=== PATIENT | male | born 1945 | race Caucasian/White ===

== ENCOUNTER 2017-02-23 13:26 | Emergency (ER) | payer OTHER, MEDICARE ==
[~2017-02-23] VITALS: Ht 180.3 cm; Wt 97.5 kg
[2017-02-23] MEDS ORDERED: LIDOCAINE 1% / SOD BICARB 8.4% 20 ML VIAL. IJ ONE (14:00)
--- NOTE | 2017-02-23 14:23 | PHYS DOC ---
Past Medical History Past Medical History: Hypertension Past Surgical History: Coronary Bypass Surgery, Other Additional Past Surgical Histo: kidney stone removal Alcohol Use: Rarely Drug Use: None Adult General Chief Complaint Chief Complaint: LACERATION/AVULSION HPI HPI Patient is a 71 year old male who presents with left index finger laceration from band0 saw while cutting raw pork. Patient is right-handed, leaves his tetanus shot was updated 10 years ago. He denies other injuries, takes no blood thinners. Review of Systems Review of Systems Constitutional: Denies fever or chills [] Eyes: Denies change in visual acuity, redness, or eye pain [] HENT: Denies nasal congestion or sore throat [] Respiratory: Denies cough or shortness of breath [] Cardiovascular: Denies chest pain GI: Denies abdominal pain, nausea, vomiting, bloody stools or diarrhea [] : Denies dysuria or hematuria [] Musculoskeletal: Denies back pain Integument: Denies rash or skin lesions [] Neurologic: Denies headache, focal weakness or sensory changes [] Current Medications Current Medications Current Medications Medications (Trade) Dose Ordered Sig/Radha Start Time Stop Time Status Last Admin Dose Admin Cefazolin Sodium/ Dextrose (Ancef 2gm Premix) 50 ml @ 100 mls/hr 1X ONCE 02/23/17 14:15 02/23/17 15:00 DC Dexamethasone Sodium Phosphate (Decadron) 20 mg STK-MED ONCE 02/23/17 15:01 02/23/17 15:02 DC Diphtheria/ Tetanus/Acell Pertussis 0.5 ml 0.5 ml ONCE ONCE 02/23/17 15:00 02/23/17 15:01 Fentanyl Citrate (Fentanyl 2ml Vial) 50 mcg PRN Q5MIN PRN 02/23/17 15:45 02/24/17 15:44 Hydromorphone HCl (Dilaudid) 0.5 mg PRN Q10MIN PRN 02/23/17 15:45 02/24/17 15:44 Lidocaine HCl 2 ml PRN 1X PRN 02/23/17 15:45 02/24/17 15:44 Lidocaine HCl (Lidocaine HCl 2% Abboject) 100 mg STK-MED ONCE 02/23/17 15:00 02/23/17 15:01 DC Lidocaine/Sodium Bicarbonate 20 ml 20 ml 1X ONCE 02/23/17 14:00 02/23/17 14:01 DC 02/23/17 14:06 20 ML Morphine Sulfate 1 mg PRN Q10MIN PRN 02/23/17 15:45 02/24/17 15:44 Ondansetron HCl (Zofran) 4 mg PRN Q6HRS PRN 02/23/17 15:45 02/24/17 15:44 Prochlorperazine Edisylate (Compazine) 5 mg PACU PRN PRN 02/23/17 15:45 02/24/17 15:44 Propofol (Diprivan) 20 ml @ As Directed STK-MED ONCE 02/23/17 15:00 02/23/17 15:01 DC Allergies Allergies Allergies Coded Allergies Type Severity Reaction Last Updated Verified No Known Drug Allergies 02/23/17 No Physical Exam Physical Exam Constitutional: Well developed, well nourished, no acute distress, non-toxic appearance. [] HENT: Normocephalic, atraumatic, bilateral external ears normal, oropharynx moist, no oral exudates, nose normal. [] Eyes:conjunctiva normal, no discharge. [] Neck: Normal range of motion Cardiovascular:Heart rate regular Lungs & Thorax: No respiratory distress Extremities: Left hand index finger shows avulsed skin over the PIP joint distally on the lateral aspect of the dorsal hand to just proximal of the DIP and involving majority of dorsal middle phalnx, arterial bleed on radial side just lateral to the pip joint. No obvious tendon laceration appreciated. Pt is able to flex at the dip and pip, approximately 30 % of normal flexion. PIP able to completely extend, DIP able to extend, likely to baseline extension 2/2 to pt's chronic arthritis of finger. Neurologic: Alert and oriented X 3, normal motor function, normal sensory function, no focal deficits noted. [] Psychologic: Affect normal, judgement normal, mood normal. [] Current Patient Data Vital Signs Vital Signs Date Time Temp Pulse Resp B/P Pulse Ox O2 Delivery O2 Flow Rate FiO2 02/23/17 15:00 111 18 176/94 98 Room Air 02/23/17 13:54 98.2 98.2 EKG EKG [] Radiology/Procedures Radiology/Procedures XR hand: Indication laceration of the second digit. Cut with a band saw. AP oblique and lateral views of the left hand were obtained. Imaging of the index finger is slightly limited secondary to the applied bandage. Moderately extensive soft tissue injury associated with the index finger is noted. There are moderately advanced degenerative changes involving the DIP joints. Degenerative change is also seen at the first and second CMC joints. A definite fracture or acute bony finding is not seen.[] Course & Med Decision Making Course & Med Decision Making Pertinent Labs and Imaging studies reviewed. (See chart for details) tdap updated. Digital block performed by me with 1% lidocaine. Irrigated with betadine/NS solution followed by a NS solutions. Pt has an arterial bleed and compression placed over the area. Contacted Dr. Rahman. He will take the pt for repair in OR. Discharged to outpt surgery. Dragon Disclaimer Dragon Disclaimer This electronic medical record was generated, in whole or in part, using a voice recognition dictation system. Departure Departure Impression: Primary Impression: Finger laceration Disposition: 05 TRANSFER OTHER Condition: STABLE Referrals: NON,STAFF (PCP) JIN LEMUS MD February 23, 2017 14:23
[2017-02-23] MEDS ORDERED: DIPHTH,PERTUSS(ACELL),TET TOX 0.5 ML DISP.SYRIN. VAX IM ONE (15:00)
[2017-02-23] MEDS ORDERED: fentaNYL PF VIAL 100 MCG/2 ML VIAL ONE ×2 (15:00→17:15)
[2017-02-23] MEDS ORDERED: LIDOCAINE 2% 100 MG/5 ML SYRINGE. ONE (15:00)
[2017-02-23] MEDS ORDERED: PROPOFOL 20 ML IV ONE (15:00)
[2017-02-23] MEDS ORDERED: ONDANSETRON PF 4 MG/2 ML VIAL. ONE (15:01)
[2017-02-23] MEDS ORDERED: DEXAMETHASONE SOD PHOS 20 MG/5 ML VIAL. ONE (15:01)
[2017-02-23] MEDS ORDERED: IV RINGERS,LACTATED 1000ML 1,000 ML IV SCH (15:37)
[2017-02-23] MEDS ORDERED: ONDANSETRON PF 4 MG/2 ML VIAL. IV PRN (15:45)
[2017-02-23] MEDS ORDERED: fentaNYL PF VIAL 100 MCG/2 ML VIAL IV PRN ×2 (15:45)
[2017-02-23] MEDS ORDERED: LIDOCAINE 1% 1 ML SYRINGE. ID PRN (15:45)
[2017-02-23] MEDS ORDERED: PROCHLORPERAZINE 10 MG/2 ML VIAL. IV PRN (15:45)
[2017-02-23] MEDS ORDERED: HYDROmorphone 2 MG/ML VIAL IV PRN (15:45)
[2017-02-23] MEDS ORDERED: MORPHINE SULFATE 2 MG/ML DISP.SYRIN. IV PRN (15:45)
[2017-02-23] MEDS: fentaNYL PF VIAL 100 MCG/2 ML VIAL IV PRN ×3 (17:16→19:01)
[2017-02-23] MEDS ORDERED: ROCURONIUM 50 MG/5 ML VIAL. ONE (17:51)
[2017-02-23] MEDS ORDERED: PHENYLEPHRINE in 0.9% NACL PF 1 MG/10 ML DISP.SYRIN. IV ONE (18:25)
[2017-02-23] MEDS ORDERED: DESFLURANE 31 TO 60 MINUTES IH ONE (18:31)
--- NOTE | 2017-02-23 19:07 | PDOC ---
BRIEF OPERATIVE NOTE Date: February 23, 2017 Pre-Op Diagnosis left index finger laceration with tissue loss Post-Op Diagnosis same plus partial extensor tendon injury Procedure Performed irrigation debridement and complex closure left index finger Surgeon Lacey Anesthesia Type: General Blood Loss 25cc Findings above Complications none HIREN LANDRY MD February 23, 2017 19:07
[2017-02-23] MEDS ORDERED: OXYC-244 PO (19:09)
--- NOTE | 2017-02-23 19:09 | DISCH ---
DISCHARGE INSTRUCTIONS Condition on Discharge Condition on Discharge: Stable Activity After Discharge Activity Instructions for Disc: Other, see below Other activity instructions: no use of left hand at work Bathing Instructions: Shower-keep dressing dry Diet after Discharge Diet after Discharge: Regular Wound Incision Care Wound/Incision Care: Keep wound elevated, Do not change dressing Other wound/incision instructi: may use other fingers to lightly grasp to eat etc Contacting the DR. after DC Call your doctor for: Concerns you may have Follow-Up Follow up with: Lacey 1 week HIREN LANDRY MD February 23, 2017 19:09
[2017-02-23] MEDS ORDERED: oxyCODONE/APAP 7.5/325 1 TAB TABLET PO PRN ×2 (19:30)
[2017-02-23 19:59] VITALS: BP 180/108
--- NOTE | 2017-02-24 01:08 | OP ---
DATE OF SURGERY: 02/23/2017 PREOPERATIVE DIAGNOSIS: Left index finger laceration with tissue loss. POSTOPERATIVE DIAGNOSIS: Left index finger laceration with tissue loss, with partial extensor tendon injury. PROCEDURE: Irrigation and debridement of left index finger with complex closure. SURGEON: Brian Rahman M.D. ANESTHESIA: General. ESTIMATED BLOOD LOSS: About 50 mL. COMPLICATIONS: None. 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 There was tissue loss noted and significant bleeding noted as it was attempted to explore in the Emergency Department and I was consulted for operative evaluation and treatment to explore the area, coagulate the blood flow and perform closure as necessary. I had gone over with him the possible options of the tissue loss, typically with contamination present, it would be certainly risky to undergo tissue coverage procedure. Furthermore, it is possible that with some arrangement of the tissue, he may be able to granulate this area in somewhat more safely and minimize the risk of infection or stiffness as a result of the graft, shrinkage, etc. We did go over the possible operative risks of medical or other anesthetic complications, possibility of later skin graft or coverage being necessary depending on the tissue viability and healing. All his questions were answered. Consent was obtained and he agreed to proceed with operative evaluation and treatment. OPERATIVE TECHNIQUE: The patient was identified, procedure verified, the patient placed in the supine position on the operating table. After adequate amounts of general endotracheal anesthesia were administered, a tourniquet was placed on the left upper extremity and was inflated for the prepping and draping. After timeout was performed, the patient and procedure identified and verified. Irrigation was first carried out with normal saline solution and tourniquet was let down to better visualize and control the bleeding, which appeared to be venous from one of the digital vessels. Exploration was carried out and there was tissue loss down to the area of bone, but not exposing the proximal interphalangeal joint. There was a partial extensor tendon injury, but overall the extensor mechanism remained functional and given the tissue arrangement, I elected to perform a flap complicated closure to bring some of the proximal dorsal tissue over the area where the bone was nearly exposed to obtain better coverage and allow good granulation tissue with the remainder. Therefore, complex closure was accomplished with nylon suture. Thorough irrigation carried out again with normal saline solution. Sterile dressings were applied followed by tube gauze on the finger. The patient was returned to the recovery room in stable condition having tolerated the procedure well. BRIAN RAHMAN MD DR: ROGERIO/mariana JOB#: [id number] / [id number]
--- NOTE | 2017-02-24 01:42 | CONS ---
DATE OF CONSULTATION: 02/23/2017 REQUESTING CONSULTATION: Destinee Garay M.D., [facility]. REASON FOR CONSULTATION: Left index finger laceration. 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 He is right hand dominant and was using a band saw, cutting some raw pork at work today when he sustained a laceration to his left index finger. PAST MEDICAL HISTORY: Significant for hypertension and cardiac disease. PAST SURGICAL HISTORY: Significant for coronary artery quintuple bypass back in 2003. He said he has had no problems since then in terms of symptoms. He also had a kidney stone removal, several cardiac catheterizations and evaluations in the interim, which were all clean. MEDICATIONS: List is reviewed. ALLERGIES: He has no known drug allergies. SOCIAL HISTORY: Denies smoking or drug use. Rare alcohol consumption socially. REVIEW OF SYSTEMS: Denies any chest pain, shortness of breath, fever, chills, visual changes, nausea, vomiting, focal weakness, sensory changes, radiating pain in extremities. Does have some chronic deformity of the end of both the index and long finger digits, says his tetanus shot was last done about 10 years ago and was updated in the Emergency Department. FAMILY HISTORY: No significant family history. PHYSICAL EXAMINATION: VITAL SIGNS: Temperature 98.2, pulse 113, respirations 18, blood pressure 199/101, pulse ox 97% saturation on room air. HEENT: Atraumatic, normocephalic. HEART: Regular rate and rhythm. LUNGS: Clear to auscultation bilaterally. ABDOMEN: Benign. EXTREMITIES: Examination of the left upper extremity reveals laceration over the primarily dorsal aspect of the PIP joint of the left index finger, has a deformity of the distal interphalangeal joint without evidence of trauma. Does have significant arterial bleeding present from one of the multiple lacerations across the finger, has some difficulty extending the digit, but is able to flex at the PIP joint. He has some arthritic change in the dominant right hand as well with no evidence of traumatic injury. X-rays of the left hand show significant degenerative changes particularly at the distal interphalangeal joint of the left index finger to a lesser extent of the long finger. No bony injury noted or instability at the PIP joint where his trauma is located. IMPRESSION: Laceration, left index finger. TREATMENT PLAN: He is actually accompanied by his boss from work today and I explained the rationale based on evaluation in the Emergency Department of his ongoing arterial bleeding. The necessity is go to the operating room and deal with the bleeding, basically ongoing treatment would potentially may consist of exploration of his tendon, possible repair, restrictions would depend upon his intraoperative findings. All his questions were answered. Consent was obtained and he agrees to proceed with operative evaluation and treatment, which will occur urgently today. HIREN LANDRY MD DR: ROGERIO/mariana JOB#: [id number] / [id number]
== END 2017-02-23 15:30 | disposition short-term general hospital (02) ==
LOC: ER 13:26 → SURHOP 14:53 → ER 15:20 → SURHOP 15:30
DX: S61.211A Laceration without foreign body of left index finger without damage to nail, initial encounter (principal); I10 Essential (primary) hypertension; Z95.1 Presence of aortocoronary bypass graft; W31.2XXA Contact with powered woodworking and forming machines, initial encounter; Y93.89 Activity, other specified; Y92.69 Other specified industrial and construction area as the place of occurrence of the external cause; Y99.8 Other external cause status
CPT/HCPCS: 13131; 73130; 90471; 90715; 96365; 96375; 99285; J0690; J1100; J2370; J2704; J3010; J2405